=== PATIENT | male | born 1955 | race Caucasian/White ===

== ENCOUNTER 2018-02-02 18:42 | Emergency (ER) | payer MEDICARE ==
[~2018-02-02] VITALS: Ht 182.8 cm; Wt 72.6 kg
[2018-02-02 19:01] LABS: BASO % 0.3 % (0.0-1.0); EOS # 0.2 10*3/uL (0.0-0.4); EOS % 1.5 % (1.0-4.0); HEMATOCRIT 34.6 % (42.0-52.0); HEMOGLOBIN 11.5 g/dl (14.0-18.0); LYMPH # 1.9 10*3/uL (1.3-4.4); LYMPH % 15.8 % (27.0-41.0); MEAN CELL VOLUME 93.5 fl (80.0-94.0); MEAN CORPUSCULAR HGB 31.1 pg (27.0-31.0); MEAN CORPUSCULAR HGB CONC 33.2 g/dl (33.0-37.0); MEAN PLATELET VOLUME 11.1 fl (9.6-12.3); MONO # 0.9 10*3/uL (0.1-1.0); MONO % 7.5 % (3.0-9.0); NEUT # 8.9 10*3/uL (2.3-7.9); NEUT % 73.9 % (47.0-73.0); PLATELET COUNT AUTOMATED 69 10*3/uL (130-400); RED CELL DISTRI WIDTH 14.6 % (0-14.5); WHITE BLOOD COUNT 12.1 10*3/uL (4.8-10.8)
[2018-02-02 19:11] LABS: ACT PARTIAL THROMBO TIME 26.9 SECONDS (20.8-31.5); INTERNATIONAL NORM RATIO 1.1 (2.0-3.5)
[2018-02-02 19:16] LABS: ALBUMIN 2.9 gm/dl (3.1-4.5); ALKALINE PHOSPHATASE 160 U/L (45-117); BUN 7 mg/dl (7-24); CHLORIDE 103 mmol/L (98-107); CREATININE 0.77 mg/dL (0.70-1.30); SGOT/AST 76 IU/L (3-35); SGPT/ALT 56 U/L (12-78); SODIUM 136 mmol/L (136-145); TOTAL PROTEIN 7.1 gm/dL (6.4-8.2)
[2018-02-03] MEDS ORDERED: GLUCOPHAGE1000 MG PO (17:55)
[2018-02-03] MEDS ORDERED: GABAPENTIN100 M2 PO (17:57)
[2018-02-03] MEDS ORDERED: OMEPRAZOLE20 M2 PO (17:58)
== END 2018-02-02 21:00 | disposition home or self-care (01) ==
LOC: ED 18:42
PROVIDERS: Emergency Medicine
DX: S50.811A Abrasion of right forearm, initial encounter (principal); M25.551 Pain in right hip; F10.129 Alcohol abuse with intoxication, unspecified; F17.200 Nicotine dependence, unspecified, uncomplicated; W01.198A Fall on same level from slipping, tripping and stumbling with subsequent striking against other object, initial encounter; Y93.89 Activity, other specified; Y92.89 Other specified places as the place of occurrence of the external cause; Y99.9 Unspecified external cause status

== ENCOUNTER 2018-02-03 15:42 | Inpatient (IN) | payer OTHER ==
[~2018-02-03] VITALS: Ht 188 cm; Wt 85.7 kg
[2018-02-03 15:47] VITALS: BP 132/66
[2018-02-03 17:06] VITALS: BP 134/66
[2018-02-03 17:50] VITALS: BP 137/83
[2018-02-03] MEDS ORDERED: GLUCOPHAGE1000 MG PO (17:55)
[2018-02-03] MEDS ORDERED: GABAPENTIN100 M2 PO (17:57)
[2018-02-03] MEDS ORDERED: OMEPRAZOLE20 M2 PO (17:58)
[2018-02-04] VITALS (9 sets, daily range): BP systolic 98–121; BP diastolic 42–69
[2018-02-04 06:44] LABS: BASO % 0.4 % (0.0-1.0); EOS # 0.1 10*3/uL (0.0-0.4); EOS % 1.7 % (1.0-4.0); HEMATOCRIT 28.8 % (42.0-52.0); HEMOGLOBIN 9.7 g/dl (14.0-18.0); LYMPH # 1.8 10*3/uL (1.3-4.4); LYMPH % 26.3 % (27.0-41.0); MEAN CELL VOLUME 92.3 fl (80.0-94.0); MEAN CORPUSCULAR HGB 31.1 pg (27.0-31.0); MEAN CORPUSCULAR HGB CONC 33.7 g/dl (33.0-37.0); MONO # 0.8 10*3/uL (0.1-1.0); MONO % 10.8 % (3.0-9.0); NEUT # 4.2 10*3/uL (2.3-7.9); NEUT % 60.4 % (47.0-73.0); PLATELET COUNT AUTOMATED 51 10*3/uL (130-400); RED BLOOD COUNT 3.12 10*6/uL (4.50-5.90); RED CELL DISTRI WIDTH 14.5 % (0-14.5)
[2018-02-04 07:11] LABS: ALBUMIN 2.5 gm/dl (3.1-4.5); ALKALINE PHOSPHATASE 148 U/L (45-117); BUN 13 mg/dl (7-24); CHLORIDE 108 mmol/L (98-107); CHOLESTEROL 100 mg/dL (<200); CREATININE 0.69 mg/dL (0.70-1.30); FREE T4 1.37 ng/dl (0.76-1.46); HDL CHOLESTEROL 32 mg/dl (40-60); LDL CHOLESTEROL 53 mg/dL (9-159); PHOSPHOROUS 2.5 mg/dL (2.5-4.9); SGOT/AST 63 IU/L (3-35); SGPT/ALT 46 U/L (12-78); TOTAL PROTEIN 6.4 gm/dL (6.4-8.2); TRIGLYCERIDES 74 mg/dl (<150); VLDL CHOLESTEROL 15 mg/dL (6-40)
[2018-02-04 07:27] LABS: SODIUM 136 mmol/L (136-145)
[2018-02-04 07:43] LABS: POTASSIUM 4.4 mmol/L (3.5-5.1)
[2018-02-04 09:15] LABS: VITAMIN D, 25-HYDROXY 20.2 ng/mL (30-100)
[2018-02-04 22:10] LABS: BASO % 0.3 % (0.0-1.0); EOS # 0.1 10*3/uL (0.0-0.4); EOS % 1.7 % (1.0-4.0); HEMATOCRIT 28.6 % (42.0-52.0); HEMOGLOBIN 9.7 g/dl (14.0-18.0); LYMPH # 1.7 10*3/uL (1.3-4.4); LYMPH % 22.4 % (27.0-41.0); MEAN CELL VOLUME 93.2 fl (80.0-94.0); MEAN CORPUSCULAR HGB 31.6 pg (27.0-31.0); MEAN CORPUSCULAR HGB CONC 33.9 g/dl (33.0-37.0); MEAN PLATELET VOLUME 9.6 fl (9.6-12.3); MONO # 0.8 10*3/uL (0.1-1.0); MONO % 10.1 % (3.0-9.0); NEUT % 65.1 % (47.0-73.0); PLATELET COUNT AUTOMATED 62 10*3/uL (130-400); RED BLOOD COUNT 3.07 10*6/uL (4.50-5.90); RED CELL DISTRI WIDTH 14.6 % (0-14.5); WHITE BLOOD COUNT 7.6 10*3/uL (4.8-10.8)
[2018-02-05] VITALS (11 sets, daily range): BP systolic 105–139; BP diastolic 58–78
[2018-02-05 06:53] LABS: BASO % 0.4 % (0.0-1.0); EOS # 0.1 10*3/uL (0.0-0.4); EOS % 1.3 % (1.0-4.0); HEMATOCRIT 28.6 % (42.0-52.0); HEMOGLOBIN 9.7 g/dl (14.0-18.0); LYMPH # 1.6 10*3/uL (1.3-4.4); MEAN CELL VOLUME 91.4 fl (80.0-94.0); MEAN CORPUSCULAR HGB CONC 33.9 g/dl (33.0-37.0); MEAN PLATELET VOLUME 10.8 fl (9.6-12.3); MONO # 0.7 10*3/uL (0.1-1.0); MONO % 9.5 % (3.0-9.0); NEUT # 5.2 10*3/uL (2.3-7.9); NEUT % 67.4 % (47.0-73.0); PLATELET COUNT AUTOMATED 68 10*3/uL (130-400); RED BLOOD COUNT 3.13 10*6/uL (4.50-5.90); RED CELL DISTRI WIDTH 14.4 % (0-14.5); WHITE BLOOD COUNT 7.8 10*3/uL (4.8-10.8)
[2018-02-05 07:21] LABS: ALBUMIN 2.8 gm/dl (3.1-4.5); ALKALINE PHOSPHATASE 131 U/L (45-117); BUN 11 mg/dl (7-24); CHLORIDE 105 mmol/L (98-107); CREATININE 0.67 mg/dL (0.70-1.30); PHOSPHOROUS 2.9 mg/dL (2.5-4.9); POTASSIUM 3.9 mmol/L (3.5-5.1); SGOT/AST 64 IU/L (3-35); SGPT/ALT 42 U/L (12-78); SODIUM 138 mmol/L (136-145); TOTAL PROTEIN 6.8 gm/dL (6.4-8.2)
[2018-02-06] VITALS: BP 123/58
[2018-02-06 04:00] VITALS: BP 116/65
[2018-02-06 06:35] LABS: BASO % 0.1 % (0.0-1.0); HEMATOCRIT 25.9 % (42.0-52.0); HEMOGLOBIN 8.7 g/dl (14.0-18.0); LYMPH % 12.2 % (27.0-41.0); MEAN CELL VOLUME 93.2 fl (80.0-94.0); MEAN CORPUSCULAR HGB 31.3 pg (27.0-31.0); MEAN CORPUSCULAR HGB CONC 33.6 g/dl (33.0-37.0); MEAN PLATELET VOLUME 9.5 fl (9.6-12.3); MONO # 0.8 10*3/uL (0.1-1.0); MONO % 10.3 % (3.0-9.0); NEUT # 6.1 10*3/uL (2.3-7.9); NEUT % 76.9 % (47.0-73.0); PLATELET COUNT AUTOMATED 78 10*3/uL (130-400); RED BLOOD COUNT 2.78 10*6/uL (4.50-5.90); RED CELL DISTRI WIDTH 14.2 % (0-14.5); WHITE BLOOD COUNT 7.9 10*3/uL (4.8-10.8)
[2018-02-06 08:00] VITALS: BP 121/69
[2018-02-06 12:00] VITALS: BP 118/66
[2018-02-06 16:00] VITALS: BP 125/60
[2018-02-06 20:00] VITALS: BP 122/56
[2018-02-07] VITALS: BP 111/54
[2018-02-07 07:03] LABS: BASO % 0.4 % (0.0-1.0); EOS # 0.1 10*3/uL (0.0-0.4); HEMATOCRIT 26.2 % (42.0-52.0); HEMOGLOBIN 8.8 g/dl (14.0-18.0); LYMPH # 1.8 10*3/uL (1.3-4.4); LYMPH % 24.9 % (27.0-41.0); MEAN CELL VOLUME 92.3 fl (80.0-94.0); MEAN CORPUSCULAR HGB CONC 33.6 g/dl (33.0-37.0); MEAN PLATELET VOLUME 10.4 fl (9.6-12.3); MONO # 0.7 10*3/uL (0.1-1.0); MONO % 10.3 % (3.0-9.0); NEUT # 4.5 10*3/uL (2.3-7.9); NEUT % 63.1 % (47.0-73.0); PLATELET COUNT AUTOMATED 80 10*3/uL (130-400); RED BLOOD COUNT 2.84 10*6/uL (4.50-5.90); RED CELL DISTRI WIDTH 14.1 % (0-14.5); WHITE BLOOD COUNT 7.2 10*3/uL (4.8-10.8)
[2018-02-07 08:00] VITALS: BP 117/64
[2018-02-07 12:00] VITALS: BP 117/64
[2018-02-07 16:00] VITALS: BP 130/68
[2018-02-07 20:00] VITALS: BP 126/62
[2018-02-08] VITALS: BP 124/60
[2018-02-08 06:44] LABS: BASO % 0.2 % (0.0-1.0); EOS # 0.1 10*3/uL (0.0-0.4); EOS % 1.9 % (1.0-4.0); HEMATOCRIT 26.4 % (42.0-52.0); HEMOGLOBIN 8.7 g/dl (14.0-18.0); LYMPH # 1.4 10*3/uL (1.3-4.4); LYMPH % 30.3 % (27.0-41.0); MEAN CELL VOLUME 93.6 fl (80.0-94.0); MEAN CORPUSCULAR HGB 30.9 pg (27.0-31.0); MONO # 0.5 10*3/uL (0.1-1.0); MONO % 11.3 % (3.0-9.0); NEUT # 2.6 10*3/uL (2.3-7.9); NEUT % 56.1 % (47.0-73.0); PLATELET COUNT AUTOMATED 67 10*3/uL (130-400); RED BLOOD COUNT 2.82 10*6/uL (4.50-5.90); RED CELL DISTRI WIDTH 14.3 % (0-14.5); WHITE BLOOD COUNT 4.7 10*3/uL (4.8-10.8)
[2018-02-08 07:09] LABS: CREATININE 0.55 mg/dL (0.70-1.30)
[2018-02-08 08:00] VITALS: BP 128/61
[2018-02-08] MEDS ORDERED: ENOXAPARIN40 MG/0.2 SC (11:24)
[2018-02-08] MEDS ORDERED: VITAMIN D-32000 UNIT PO (11:24)
[2018-02-08] MEDS ORDERED: B12,B-12,B 12500 MC1 PO (11:24)
[2018-02-08] MEDS ORDERED: NATURE'S BLEND F1 MG PO (11:24)
[2018-02-08] MEDS ORDERED: PERCOCET 5-3251 EACH PO (11:26)
[2018-02-08 12:00] VITALS: BP 135/78
== END 2018-02-08 14:33 | disposition home health service (06) | DRG 481 ==
LOC: ED 15:42 → EDHOLD 17:15 → 5E 17:15
PROVIDERS: Internal Medicine; Orthopaedic Surgery; Student in an Organized Health Care Education/Training Program
PROC: 30233R1 Transfusion of Nonautologous Platelets into Peripheral Vein, Percutaneous Approach (ICD-10-PCS; 2018-02-04)
PROC: 0QS604Z Reposition Right Upper Femur with Internal Fixation Device, Open Approach (ICD-10-PCS; principal; 2018-02-05)
DX: S72.144A Nondisplaced intertrochanteric fracture of right femur, initial encounter for closed fracture (principal); E44.0 Moderate protein-calorie malnutrition; D69.6 Thrombocytopenia, unspecified; Z68.45 Body mass index [BMI] 70 or greater, adult; I65.29 Occlusion and stenosis of unspecified carotid artery; E11.65 Type 2 diabetes mellitus with hyperglycemia; C44.212 Basal cell carcinoma of skin of right ear and external auricular canal; D72.829 Elevated white blood cell count, unspecified; D64.9 Anemia, unspecified; D72.810 Lymphocytopenia; D72.9 Disorder of white blood cells, unspecified; R74.0 Nonspecific elevation of levels of transaminase and lactic acid dehydrogenase [LDH]; B19.20 Unspecified viral hepatitis C without hepatic coma; F17.200 Nicotine dependence, unspecified, uncomplicated; E78.1 Pure hyperglyceridemia; E87.6 Hypokalemia; I70.209 Unspecified atherosclerosis of native arteries of extremities, unspecified extremity; W01.0XXA Fall on same level from slipping, tripping and stumbling without subsequent striking against object, initial encounter; Y93.89 Activity, other specified; Y92.098 Other place in other non-institutional residence as the place of occurrence of the external cause; Y99.8 Other external cause status; Z90.49 Acquired absence of other specified parts of digestive tract; Z83.3 Family history of diabetes mellitus; Z82.49 Family history of ischemic heart disease and other diseases of the circulatory system; Z79.899 Other long term (current) drug therapy; Z71.6 Tobacco abuse counseling

== ENCOUNTER → 2018-02-18 | Outpatient (CLI) | payer OTHER ==
[~2018-02-18] MED LIST: B12,B-12,B 12500 MC1 PO; ENOXAPARIN40 MG/0.2 SC; GABAPENTIN100 M2 PO; GLUCOPHAGE1000 MG PO; NATURE'S BLEND F1 MG PO; OMEPRAZOLE20 M2 PO; PERCOCET 5-3251 EACH PO; VITAMIN D-32000 UNIT PO
== END | disposition home or self-care (01) ==
LOC: ORTHO 02:38
DX: M16.11 Unilateral primary osteoarthritis, right hip (principal); Z47.1 Aftercare following joint replacement surgery

== ENCOUNTER → 2018-03-22 | Outpatient (CLI) | payer OTHER | END | disposition home or self-care (01) | LOC: ORTHO 02:48 | DX: Z47.89 Encounter for other orthopedic aftercare (principal); M16.11 Unilateral primary osteoarthritis, right hip; Z96.641 Presence of right artificial hip joint ==

== ENCOUNTER → 2018-09-26 | Day surgery (SDC) | payer MEDICARE ==
[~2018-09-26] MED LIST changes: +ALDACTONE25 MG PO; +FUROSEMIDE10 MG/1 M1 PO; +LEVOFLOXACIN500 MG PO; +METFORMIN HYD1000 MG PO; +METFORMIN HYDR500 MG PO; +PROPRANOLOL HCL10 MG PO; +VITAMIN E100 UNI2 PO
[2018-09-26 12:15] VITALS: BP 127/49
== END | disposition home or self-care (01) ==
DX: R18.8 Other ascites (principal); K74.69 Other cirrhosis of liver; K76.6 Portal hypertension

== ENCOUNTER → 2018-10-03 | Outpatient (CLI) | payer MEDICARE | END | disposition home or self-care (01) | DX: S72.144D Nondisplaced intertrochanteric fracture of right femur, subsequent encounter for closed fracture with routine healing (principal); M16.11 Unilateral primary osteoarthritis, right hip; X58.XXXD Exposure to other specified factors, subsequent encounter ==

== ENCOUNTER → 2018-10-04 | Day surgery (SDC) | payer MEDICARE | END | disposition home or self-care (01) | DX: R18.8 Other ascites (principal); K74.60 Unspecified cirrhosis of liver ==

== ENCOUNTER → 2018-10-18 | Day surgery (SDC) | payer MEDICARE | END | disposition home or self-care (01) | LOC: RAD 11:00 | DX: R18.8 Other ascites (principal) ==

== ENCOUNTER → 2018-10-25 | Day surgery (SDC) | payer MEDICARE ==
[~2018-10-25] MED LIST changes: -LEVOFLOXACIN500 MG PO; -PROPRANOLOL HCL10 MG PO
== END | disposition home or self-care (01) ==
DX: K70.31 Alcoholic cirrhosis of liver with ascites (principal); Z53.8 Procedure and treatment not carried out for other reasons

== ENCOUNTER → 2018-11-01 | Day surgery (SDC) | payer MEDICARE | END | disposition home or self-care (01) | DX: R18.8 Other ascites (principal) ==

== ENCOUNTER → 2018-11-08 | Day surgery (SDC) | payer MEDICARE ==
[~2018-11-08] MED LIST changes: +LEVOFLOXACIN500 MG PO; +PROPRANOLOL HCL10 MG PO
== END | disposition home or self-care (01) ==
DX: R18.8 Other ascites (principal)

== ENCOUNTER → 2018-11-15 | Day surgery (SDC) | payer MEDICARE ==
[~2018-11-15] MED LIST changes: -LEVOFLOXACIN500 MG PO; -PROPRANOLOL HCL10 MG PO
== END | disposition home or self-care (01) ==
DX: R18.8 Other ascites (principal)

== ENCOUNTER → 2018-11-21 | Day surgery (SDC) | payer MEDICARE ==
[~2018-11-21] MED LIST changes: +LEVOFLOXACIN500 MG PO; +PROPRANOLOL HCL10 MG PO
== END | disposition home or self-care (01) ==
DX: K70.31 Alcoholic cirrhosis of liver with ascites (principal); K21.9 Gastro-esophageal reflux disease without esophagitis; E11.40 Type 2 diabetes mellitus with diabetic neuropathy, unspecified; F17.210 Nicotine dependence, cigarettes, uncomplicated; Z79.899 Other long term (current) drug therapy; Z90.49 Acquired absence of other specified parts of digestive tract; Z72.89 Other problems related to lifestyle; Z98.890 Other specified postprocedural states; Z82.49 Family history of ischemic heart disease and other diseases of the circulatory system; Z83.3 Family history of diabetes mellitus

== ENCOUNTER → 2018-12-02 | Day surgery (SDC) | payer MEDICARE ==
[2018-12-02 10:47] LABS: ACT PARTIAL THROMBO TIME 25.5 SECONDS (20.8-31.5); INTERNATIONAL NORM RATIO 1.1 (2.0-3.5)
== END | disposition home or self-care (01) ==
PROVIDERS: Internal Medicine
DX: K70.31 Alcoholic cirrhosis of liver with ascites (principal); E11.9 Type 2 diabetes mellitus without complications; B19.20 Unspecified viral hepatitis C without hepatic coma; K21.9 Gastro-esophageal reflux disease without esophagitis; G62.9 Polyneuropathy, unspecified; G47.00 Insomnia, unspecified; Z98.890 Other specified postprocedural states; Z79.899 Other long term (current) drug therapy; Z83.3 Family history of diabetes mellitus; Z82.49 Family history of ischemic heart disease and other diseases of the circulatory system

== ENCOUNTER → 2018-12-10 | Day surgery (SDC) | payer MEDICARE | END | disposition home or self-care (01) | DX: R18.8 Other ascites (principal); K74.60 Unspecified cirrhosis of liver ==

== ENCOUNTER → 2018-12-18 | Day surgery (SDC) | payer MEDICARE | END | disposition home or self-care (01) | DX: R18.8 Other ascites (principal); K74.60 Unspecified cirrhosis of liver ==

== ENCOUNTER → 2018-12-26 | Day surgery (SDC) | payer MEDICARE | END | disposition home or self-care (01) | DX: R18.8 Other ascites (principal); K70.30 Alcoholic cirrhosis of liver without ascites; E11.9 Type 2 diabetes mellitus without complications; B19.20 Unspecified viral hepatitis C without hepatic coma; G47.00 Insomnia, unspecified; G62.9 Polyneuropathy, unspecified; K21.9 Gastro-esophageal reflux disease without esophagitis; Z98.890 Other specified postprocedural states; Z79.899 Other long term (current) drug therapy; Z90.49 Acquired absence of other specified parts of digestive tract ==

== ENCOUNTER → 2019-01-23 | Day surgery (SDC) | payer MEDICARE | END | disposition home or self-care (01) | DX: R18.8 Other ascites (principal); K74.60 Unspecified cirrhosis of liver ==

== ENCOUNTER 2019-02-08 19:15 | Inpatient (IN) | payer MEDICARE ==
[~2019-02-08] VITALS: Ht 175.2 cm; Wt 64.6 kg
--- NOTE | ~2019-02-08 | EKG ---
[place], [place] ELECTROCARDIOGRAM REPORT NAME: ELLIOT CUTLER UNIT #: [id number] ROOM: [facility] DOCTOR: EPIPHANY DRAFT REPORT BIRTHDATE: [birth year] [facility] Test Date: 2019-02-09 Test Time: 01:16:58 Pat Name: ELLIOT CUTLER Department: Room: [facility] Gender: M [employer] Set Up Operator: Candace Tran : 1955 Requested By: WARNER GHOSH Order Number: [id number] Reading MD: Lesli Hawthorne MD Measurements Intervals [place] Rate: 97 P: 12 AL: 160 QRS: 27 QRSD: 94 T: 3 QT: 395 QTc: 502 Interpretive Statements Sinus rhythm Ventricular premature complex Low voltage, extremity leads Prolonged QT interval Electronically Signed On 02-09-2019 13:14:46 PDT by Lesli Hawthorne MD CM:EKGRPT:ELECTROCARDIOGRAM REPORT [id number] 1314 WARNER GHOSH MD EPIPHANY DRAFT REPORT WARNER GHOSH MD
--- NOTE | ~2019-02-08 | CON ---
[place], [place] REPORT OF CONSULTATION NAME[id number] UNIT #: [id number] ROOM: [facility]- DOCTOR: AMADOR MACK MD BIRTHDATE: [birth year] DOS: 02/09/2019 REASON FOR CONSULTATION: SBP. CHIEF COMPLAINT: Shortness of breath. HISTORY OF PRESENT ILLNESS: This is a 63-year-old male with past medical history of hepatitis C, chronic untreated with cirrhosis of liver and recurrent ascites, who undergoes frequent drainage and last drainage was on 01/30/2019, IR-guided, draining 7100 mL of clear fluid without any albumin supplementation. He was brought in because of the concern of daughter as the patient has shortness of breath. He has not been eating and drinking well. His pulse ox was noted to be in his 60s, currently he is on 12 L of oxygen, not intubated. He is in ICU. Interestingly, he was a DNR comfort care; however, his daughter told everything needs to be done and the patient refused it now. Rest of the history is limited. Yesterday, he underwent a paracentesis in the ER and there is only 33 wbc's. He was not on any antibiotics prior to this. His Gram stain shows few PMNs, no organism. He has been started on vancomycin and Zosyn. PAST MEDICAL HISTORY: Significant for cirrhosis of liver, hepatitis C untreated, basal cell carcinoma of the skin of ear, carotid artery stenosis, COPD, type 2 diabetes controlled, intertrochanteric fracture of right hip. PAST SURGICAL HISTORY: Cholecystectomy, toe surgery, and right hip ORIF recently. PAST SOCIAL HISTORY: Smoker smoked 1 pack per day. Currently no alcohol intake. FAMILY HISTORY: Significant for diabetes and father currently . Mother had a history of CHF, coronary artery disease. ALLERGIES: No known drug allergies. MEDICATIONS: Prior to the hospitalization reviewed. REVIEW OF SYSTEMS: A 12-point review of systems has been done. Pertinent negative and positives included in the HPI, rest are noncontributory. PHYSICAL EXAMINATION: GENERAL: The patient is alert and awake, but not completely oriented, in mild distress, and he is cachectic with bilateral temporal wasting of muscles. HEART: Atraumatic, normocephalic. PERRLA, EOMI. RESPIRATORY: Air entry is bilaterally equal. There are bilateral lower lung crackles. ABDOMEN: Distended, soft, nontender. EXTREMITIES: No pedal edema. SKIN: There are 2 skin lesions at the back, which were previous abscess drained. Currently not infected. No redness, tenderness, healing well. [place], [place] REPORT OF CONSULTATION NAME: ELLIOT CUTLER UNIT #: [id number] ROOM: [facility] DOCTOR: AMADOR MACK MD BIRTHDATE: [birth year] LABORATORY DATA AND IMAGING: Noted. ASSESSMENT AND PLAN: 1. Leukocytosis, likely from dehydration. 2. Spontaneous bacterial peritonitis ruled out. 3. Cirrhosis of liver with ascites. 4. Chronic hepatitis C, untreated. 5. Acute respiratory failure/chronic obstructive pulmonary disease. PLAN: 1. At this time, discontinue vancomycin. Keep on Zosyn. 2. Paracentesis fluid not conclusive for SBP. 3. Would recommend for a CT scan of abdomen and pelvis with contrast, at the same time, his overall prognosis is poor. Code status needs to be addressed. The patient himself wishes for comfort care. Thank you for your consult. Please call for any questions. We will follow the patient closely. Amador Mack MD CM:CONSTR:REPORT OF CONSULTATION 1622 02/09/19 [id number] interface
--- NOTE | ~2019-02-08 | EKG ---
[place], [place] ELECTROCARDIOGRAM REPORT NAME: ELLIOT CUTLER UNIT #: [id number] ROOM: [facility] DOCTOR: ABELINO DRAFT REPORT BIRTHDATE: [birth year] [facility] Test Date: 2019-02-08 Test Time: 19:24:13 Pat Name: ELLIOT CUTLER Department: Room: [facility] Gender: M Ham Passer: Sarwat Cantu : 1955 Requested By: WARNER GHOSH Order Number: [id number] Reading MD: Lesli Hawthorne MD Measurements Intervals [place] Rate: 154 P: 20 DE: 135 QRS: 50 QRSD: 82 T: 10 QT: 258 QTc: 413 Interpretive Statements Supraventricular tachycardia Multiple ventricular premature complexes Low voltage, extremity leads Baseline wander in lead(s) V2 Electronically Signed On 02-09-2019 13:13:27 PDT by Lesli Hawthorne MD CM:EKGRPT:ELECTROCARDIOGRAM REPORT 23 1313 WARNER GHOSH MD EPIPHANY DRAFT REPORT WARNER GHOSH MD
--- NOTE | ~2019-02-08 | EKG ---
[place], [place] ELECTROCARDIOGRAM REPORT NAME: ELLIOT CUTLER UNIT #: [id number] ROOM: [facility] DOCTOR: ABELINO DRAFT REPORT BIRTHDATE: [birth year] [facility] Test Date: 2019-02-08 Test Time: 22:39:42 Pat Name: ELLIOT CUTLER Department: Room: [facility] Gender: M Nursery Technician: Candace Tran : 1955 Requested By: WARNER GHOSH Order Number: [id number] Reading MD: Lesli Hawthorne MD Measurements Intervals [place] Rate: 106 P: 17 LA: 150 QRS: 20 QRSD: 89 T: 4 QT: 357 QTc: 475 Interpretive Statements Sinus tachycardia Low voltage, extremity leads Baseline wander in lead(s) V1 Electronically Signed On 02-09-2019 13:14:23 PDT by Lesli Hawthorne MD CM:EKGRPT:ELECTROCARDIOGRAM REPORT 1314 WARNER GHOSH MD EPIPHANY DRAFT REPORT WARNER GHOSH MD
[2019-02-08 19:24] VITALS: BP 149/100
[2019-02-08 19:35] VITALS: BP 137/91
[2019-02-08 19:37] LABS: HEMOGLOBIN 13.1 g/dl (14.0-18.0); MEAN CORPUSCULAR HGB 34.1 pg (27.0-31.0); MEAN CORPUSCULAR HGB CONC 34.5 g/dl (33.0-37.0); MEAN PLATELET VOLUME 9.6 fl (9.6-12.3); RED BLOOD COUNT 3.84 10*6/uL (4.50-5.90); RED CELL DISTRI WIDTH 18.5 % (0-14.5)
[2019-02-08 19:42] LABS: PLATELET COUNT AUTOMATED 143 10*3/uL (130-400); WHITE BLOOD COUNT 48.9 10*3/uL (4.8-10.8)
--- NOTE | 2019-02-08 19:46 | NUR ---
ATTEMPTED TO NOTIF NEXT OF KIN ELIZABETH X2 LEFT MESSAGES OLD DNR PAPERWORK, BUT NOT SIGNED BY A PHYSICIAN AND PATIENT VERBALIZED WANTING "EVERYTHING DONE NEEDED" IN FRONT OF THIS RN, DEEPA RN, AND RESPIRATORY ALANA
[2019-02-08 19:53] LABS: ALBUMIN 2.5 gm/dl (3.1-4.5); CREATININE 1.65 mg/dL (0.70-1.30); POTASSIUM 4.2 mmol/L (3.5-5.1); TOTAL PROTEIN 7.4 gm/dL (6.4-8.2)
[2019-02-08 19:56] LABS: TOTAL CELLS COUNTED 100 #CELLS
[2019-02-08 19:57] LABS: PLATELET SUFFICIENCY NORMAL (NORMAL); POLYCHROMASIA SLIGHT; TROPONIN I 0.046 ng/ml (<0.045)
--- NOTE | 2019-02-08 19:57 | NUR ---
CRITICAL LAB RESULT TROP 0.046. DR MACIEL NOTIFIED AND NURSE MAYRA NOTIFIED
[2019-02-08 19:58] VITALS: BP 111/44
[2019-02-08 19:58] LABS: BURR CELLS FEW; TOXIC GRANULATION SLIGHT
--- NOTE | 2019-02-08 19:58 | NUR ---
ATTEMPTED TO CONTACT NEXT OF KIN AGAIN, LEFT MESSAGE
[2019-02-08 20:03] LABS: ACT PARTIAL THROMBO TIME 26.3 SECONDS (20.8-31.5); INTERNATIONAL NORM RATIO 1.2 (2.0-3.5)
--- NOTE | 2019-02-08 20:29 | NUR ---
SPOKE WITH ELIZABETH, DAUGHTER, RETURNED CALL, VERIFIED THAT PATIENT IS A FULL CODE, INFORMED NURSE PATIENT HAS HAD COUGH AND FLU LIKE SYMPTOMS FOR A WEEK, WORSE LAST TWO DAYS, CELLULAR NUMBER [phone] ALSO HAD ENDEOSCOPY 3WKS
[2019-02-08 21:11] LABS: BODY FLUID WBC 33 /uL
--- NOTE | 2019-02-08 21:18 | NUR ---
PER PATIENT REQUEST, PT REMOVED FROM BIPAP, PLACED BACK ON 100% NON REBREATHER 100% SAT
[2019-02-08 21:21] VITALS: BP 103/71
--- NOTE | 2019-02-08 21:32 | NUR ---
PT HAS RED COCCYX AREA BUT IS BLANCHABLE
--- NOTE | 2019-02-08 21:33 | NUR ---
[facility] "IS OFF THE DEPARTMENT" AND "UNABLE TO BRING PATIENT AT THIS TIME"
[2019-02-08 21:50] LABS: BF LYMPHOCYTES 16 %; BF MACROPHAGES 69 %; BF NEUTROPHILS 15 %
[2019-02-08 22:15] VITALS: BP 93/63; BP 94/64
--- NOTE | 2019-02-08 22:45 | NUR ---
DR. ANDREWS AWARE THAT PATIENT HAS ARRIVED TO THE FLOOR AND MED REC IS UP-TO-DATE.
--- NOTE | 2019-02-08 22:55 | NUR ---
A 63, admitted to ICCU, under the services of AUSTEN Menjivar MD with a diagnosis of BACTERIAL PERITONITIS, CIRRHOSIS. Chief complaint is SHORTNESS OF BREATHE. Patient arrived via bed from ER. Monitor applied. Initial assessment completed. Vital signs taken and recorded. AUSTEN MENJIVAR MD notified of admission to the unit. Orders received. See assessment for past medical history, medications and allergies. Patient and/or family oriented to unit. [facility]U visitation policy reviewed. Clothing/patient valuable form completed. CAS HERNANDEZ
--- NOTE | 2019-02-08 22:57 | NUR ---
ON INITIAL ASSESSMENT PATIENT IS DEEMED A&OX3. PATIENT VERBALIZES THAT HE DOES NOT WANT ANY RESUSCITATIVE MEASURES TO BE PERFORMED. PATIENT STATES "TO LET HIM GO". YAMEL RN AND JOSE F RN PRESENT IN THE ROOM AT THIS TIME. DAUGHTER ELIZABETH CALLED AND MADE AWARE OF PATIENT WISHES AND IS UNDERSTANDABLE DURING CONVERSATION. DR. ANDREWS IN TO SIGN DNR-CC FORM.
--- NOTE | 2019-02-08 23:20 | NUR ---
DR ANDREWS IN TO SEE PATIENT AND DISCUSS PLAN OF CARE.
--- NOTE | 2019-02-08 23:50 | NUR ---
DR ODONNELL NOTIFIED OF ADMISSION, PATIENT CONDITION, HISTORY, AND LABS REVIEWED. ORDERS RECEIVED. DR. ODONNELL WILL TALK TO DR. BASURTO ABOUT NEPHROLOGY CONSULT.
[2019-02-09] VITALS: BP 98/60
--- NOTE | 2019-02-09 00:20 | NUR ---
CARDIOLOGY ANSWERING SERVICES CALLED TO LEAVE MESSAGE OF ROUTINE CONSULT. ANAY FROM ANSWERING SERVICE TRANSFERRED ME DIRECTLY TO DR. ARNDT. SPOKE WITH DR. ARNDT ABOUT PATIENT CONDITION AND PRESENTING SYMPTOMS. PATIENT IS STABLE AT THIS TIME AND WILL BE SEEN TOMORROW BY DR. ARNDT.
--- NOTE | 2019-02-09 00:46 | NUR ---
MESSAGE LEFT WITH INFECTIOUS DISEASE REGARDING ROUTINE CONSULT. CALL BACK NUMBER GIVEN.
--- NOTE | 2019-02-09 03:30 | NUR ---
NORCO GIVEN PER PT REQUEST FOR HEADACHE AND JOINT PAIN. PATIENT RATING PAIN 6/10 AND DESCRIBED A DULL ACHE. WILL CONTINUE TO MONITOR. CALL LIGHT WITHIN REACH.
[2019-02-09 04:00] VITALS: BP 97/61
--- NOTE | 2019-02-09 04:30 | NUR ---
MEDICATION EFFECTIVE. PATIENT RESTING COMFORTABLY IN BED WITH HOB ELEVATED AND HEELS ELEVATED AT THIS TIME.
[2019-02-09 05:30] LABS: ALBUMIN 1.9 gm/dl (3.1-4.5); BUN 28 mg/dl (7-24); CHLORIDE 109 mmol/L (98-107); CHOLESTEROL 85 mg/dL (<200); CREATININE 1.29 mg/dL (0.70-1.30); POTASSIUM 4.2 mmol/L (3.5-5.1); SGOT/AST 58 IU/L (3-35); SGPT/ALT 25 U/L (12-78); SODIUM 139 mmol/L (136-145); TOTAL PROTEIN 5.6 gm/dL (6.4-8.2); TRIGLYCERIDES 81 mg/dl (<150); VLDL CHOLESTEROL 16 mg/dL (6-40)
[2019-02-09 05:36] LABS: ALKALINE PHOSPHATASE 119 U/L (45-117); FREE T4 1.16 ng/dl (0.76-1.46); HDL CHOLESTEROL 29 mg/dl (40-60); LDL CHOLESTEROL 40 mg/dL (9-159); THYROID STIM HORMONE (HS) 0.586 uIU/ml (0.358-4.75)
[2019-02-09 06:05] LABS: ACT PARTIAL THROMBO TIME 27.5 SECONDS (20.8-31.5); INTERNATIONAL NORM RATIO 1.2 (2.0-3.5)
[2019-02-09 06:10] LABS: BASO % 0.1 % (0.0-1.0); LYMPH # 1.3 10*3/uL (1.3-4.4); LYMPH % 6.3 % (27.0-41.0); MEAN CELL VOLUME 98.3 fl (80.0-94.0); MEAN CORPUSCULAR HGB 33.4 pg (27.0-31.0); MEAN PLATELET VOLUME 10.2 fl (9.6-12.3); MONO # 0.9 10*3/uL (0.1-1.0); MONO % 4.4 % (3.0-9.0); NEUT # 18.5 10*3/uL (2.3-7.9); NEUT % 87.9 % (47.0-73.0); RED BLOOD COUNT 2.96 10*6/uL (4.50-5.90)
[2019-02-09 06:11] LABS: HEMOGLOBIN 9.9 g/dl (14.0-18.0)
[2019-02-09 06:12] LABS: HEMATOCRIT 29.1 % (42.0-52.0); PLATELET COUNT AUTOMATED 50 10*3/uL (130-400)
[2019-02-09 06:42] LABS: VITAMIN D, 25-HYDROXY 16.5 ng/mL (30-100)
--- NOTE | 2019-02-09 06:43 | NUR ---
NOTIFIED DR. ANDREWS ABOUT NEEDING WOUND CARE ORDERS. STATES DR. ODONNELL WILL PROVIDE WOUND CARE ORDERS WHEN HE COMES IN TODAY.
[2019-02-09 07:43] LABS: BASO % 0.2 % (0.0-1.0); HEMATOCRIT 29.3 % (42.0-52.0); LYMPH # 1.8 10*3/uL (1.3-4.4); MEAN CORPUSCULAR HGB 33.4 pg (27.0-31.0); MEAN CORPUSCULAR HGB CONC 34.1 g/dl (33.0-37.0); MEAN PLATELET VOLUME 9.6 fl (9.6-12.3); MONO # 0.9 10*3/uL (0.1-1.0); NEUT # 18.8 10*3/uL (2.3-7.9); NEUT % 86.4 % (47.0-73.0); PLATELET COUNT AUTOMATED 55 10*3/uL (130-400); RED BLOOD COUNT 2.99 10*6/uL (4.50-5.90); WHITE BLOOD COUNT 21.8 10*3/uL (4.8-10.8)
[2019-02-09 08:00] VITALS: BP 92/62
[2019-02-09 12:00] VITALS: BP 90/60
--- NOTE | 2019-02-09 12:00 | NUR ---
DR ODONNELL INTO ASSESS PT AND DISCUSS CODE STATUS WITH DAUGHTER AND PT. IT HAS BEEN DECIDED THAT [facility] WILL BE CONSULTED AND PT WILL REMAIN A DNRCC.
--- NOTE | 2019-02-09 14:50 | NUR ---
MOANING IN PAIN. COMPLAINS OF PAIN IN ABDOMEN. RATES PAIN A 10 ON A PAIN SCALE OF 1-10. MEDICATED WITH NORCO ORDERED
--- NOTE | 2019-02-09 14:57 | NUR ---
DR. ODONNELL NOTIFIED THAT PATIENT IS IN SEVERE PAIN. ORDERS RECEIVED FOR DILAUDID 0.5MG IV
[2019-02-09 16:00] VITALS: BP 127/77
--- NOTE | 2019-02-09 16:00 | NUR ---
NO WOUND CARE ORDERS NEEDED PER DR MACK.
--- NOTE | 2019-02-09 16:35 | NUR ---
BS 34. 1 AMP OF D50 ADMINISTERED ALONG WITH AN OJ AND SMALL AMOUNT OF PUDDING.
--- NOTE | 2019-02-09 16:37 | NUR ---
1530 DILAUDID 0.5MG IV ADMINISTERED FOR OVERALL BODY PAIN RATED A 10. PT IS NOW SLEEPING.
--- NOTE | 2019-02-09 16:59 | NUR ---
BS IS NOW 101.
[2019-02-09 20:00] VITALS: BP 108/62
[2019-02-10] VITALS: BP 101/53
[2019-02-10 04:00] VITALS: BP 102/35
[2019-02-10 05:15] LABS: ALBUMIN 1.8 gm/dl (3.1-4.5); CREATININE 1.5 mg/dL (0.70-1.30); POTASSIUM 4.5 mmol/L (3.5-5.1); TOTAL PROTEIN 5.4 gm/dL (6.4-8.2)
--- NOTE | 2019-02-10 05:30 | NUR ---
AT 0510 PT HEART RATE INTO 20-30'S, AGONAL BREATHING AND UNRESPONSIVE. PT STOPPED BREATHING FOR APPROX 2 MINUTES THEN PT HR BACK UP INTO THE 90'S AND NSR. RESP 20'S, POX 92% AND RESPONDING TO VERBAL STIMULI.
[2019-02-10 06:12] LABS: BASO # 0.1 10*3/uL (0.0-0.1); BASO % 0.2 % (0.0-1.0); HEMATOCRIT 30.7 % (42.0-52.0); LYMPH # 1.6 10*3/uL (1.3-4.4); MEAN CORPUSCULAR HGB CONC 32.6 g/dl (33.0-37.0); MEAN PLATELET VOLUME 10.5 fl (9.6-12.3); MONO # 0.9 10*3/uL (0.1-1.0); MONO % 4.2 % (3.0-9.0); NEUT # 19.4 10*3/uL (2.3-7.9); NEUT % 87.3 % (47.0-73.0); PLATELET COUNT AUTOMATED 53 10*3/uL (130-400); RED BLOOD COUNT 3.03 10*6/uL (4.50-5.90); WHITE BLOOD COUNT 22.2 10*3/uL (4.8-10.8)
[2019-02-10 06:49] LABS: MEAN CELL VOLUME 101.3 fl (80.0-94.0)
--- NOTE | 2019-02-10 07:48 | NUR ---
Received order for [facility]. Contacted hospice and spoke with Luz, faxed referral.
[2019-02-10 08:00] VITALS: BP 97/59
--- NOTE | 2019-02-10 08:09 | NUR ---
PHYSICAL THERAPY Nursing screen received. Noted hospice consult and not medically appropriate for physical therapy at this time. Thank you. Yaneth Yu,PT
--- NOTE | 2019-02-10 08:13 | NUR ---
PT IS IN A VERY GRAVE STATE. WORKERS' COMPENSATION CLAIMS SUPERVISOR HAS FAXED REQUEST OVER TO [facility] PER PT AND DAUGHTER/ERIK ROSSI ([phone]).
--- NOTE | 2019-02-10 08:59 | NUR ---
Spoke to daughter, Nadira, who would like a referral sent to [facility] for hospice consult as well as [facility]. corporate planner notified.
--- NOTE | 2019-02-10 09:05 | NUR ---
DAUGHTER/POA CALLED IN AND REQUESTED TO HAVE FATHER KEPT COMFORTABLE POSSIBLE UNTIL HOSPICE ARRANGEMENTS HAVE BEEN MADE. DR ODONNELL MADE AWARE AND ORDERED MORPHINE 2MG IV Q2H/PRN.
--- NOTE | 2019-02-10 09:11 | NUR ---
Daughter is now requesting a referral to [facility]. Contacted agency and faxed referral. They are going to call patients daughter, then call back when a time is set to come in and see patient.
--- NOTE | 2019-02-10 09:20 | NUR ---
MEDICATED WITH MORPHINE 2MG IV FOR COMFORT AND ZOFRAN 4MG IV FOR NAUSEA. DR ODONNELL INTO ASSESS PT AND INCREASED MORPHINE IF NO COMFORT REACHED.
--- NOTE | 2019-02-10 10:10 | NUR ---
ELLIOT CUTLER [id number] Please refer to the physician's history and physical for past medical history, comorbid conditions, and allergies. Diagnosis: SPONTANEOUS BACTERIAL PERITONITIS CHIRRHOSIS Ace Score: 13,MODERATE RISK WOUND DESCRIPTIONS: Wound Number: 1 Right buttocks intact scar noted. No drainage at time of assessment. No open areas noted at time of assessment. Wound Number: 2 Location of the wound: right lower back Type of wound: surgical Thickness: Full Size: 1.5cm x 2.0cm x 0.1cm Tunneling: none Undermining: none Sinus Tract: none Presence of Exudate: none Amount: None Color: Brown, red Odor: None Periwound Skin Appearance: Normal Wound edges: closed Pain (associated with wound): none at time of assessment How does patient state this happened? pt's nurse stated he had a cyst removed but unsure of date Surface the patient is resting on: XPRT SKIN PREVENTION RECOMMENDATION: 1. Pressure redistribution support surface as appropriate 2. Elevate heels 3. Remove boots/TEDS every shift and reapply 4. Head of bed 30 degrees as tolerated 5. Assess nutrition and hydration 6. Manage moisture 7. Avoid the use of containment devices while in bed 8. Use absorptive products on surfaces limit layers of linens on bed 9. Turn and reposition every 1-2 hours in bed and every 1 hour in chair as tolerated 10. Weight shifts every 15 minutes while up in chair 11. Offloading with pillows or device to keep heels elevated off bed 12. Monitor skin at least every shift 13. Inspect under medical devices twice a day WOUND TREATMENT RECOMMENDATIONS: Cleanse right buttocks with soap and water and apply hydraguard every shift and prn for soiling. Full thickness guidelines: Cleanse right back with nss and apply sureprep around the wound therahoney to wound bed and cover with optifoam gentle. Wheelchair cushion when oob. Heel raiser pro boots while in bed.
--- NOTE | 2019-02-10 10:15 | NUR ---
MEDICATED WITH MORPHINE 2MG IV FOR COMFORT PER FAMILYS REQUEST. PERSONAL CARE HOME ADMINISTRATOR ALSO NOTIFIED AND AT BEDSIDE.
--- NOTE | 2019-02-10 10:45 | NUR ---
[facility]
--- NOTE | 2019-02-10 11:01 | NUR ---
PT HAS WITH FAMILY AT BEDSIDE. ONE CALL HAS RELEASED THE BODY. DR ODONNELL AND COLBY FINN RN BACK SEWER MADE AWARE OF . AWAITING ARRANGEMENTS FROM FAMILY.
--- NOTE | 2019-02-10 13:32 | NUR ---
PT DC TO [facility] VIA CART WITH EYE GLASSES. DAUGHTER ELIZABETH IS COMING TO [employer] OTHER BELONGINGS.
== END 2019-02-10 10:40 | disposition expired | DRG 871 ==
LOC: ED 19:15 → EDHOLD 20:17 → ICCU 20:38
PROVIDERS: Emergency Medicine Emergency Medical Services; Internal Medicine; ADMIT Internal Medicine
PROC: 5A09357 Assistance with Respiratory Ventilation, Less than 24 Consecutive Hours, Continuous Positive Airway Pressure (ICD-10-PCS; principal; 2019-02-08)
PROC: 0W9G3ZZ Drainage of Peritoneal Cavity, Percutaneous Approach (ICD-10-PCS; principal; 2019-02-08)
DX: A41.9 Sepsis, unspecified organism (principal); K65.2 Spontaneous bacterial peritonitis; J96.01 Acute respiratory failure with hypoxia; E43 Unspecified severe protein-calorie malnutrition; R18.8 Other ascites; R64 Cachexia; Z66 Do not resuscitate; Z51.5 Encounter for palliative care; R65.20 Severe sepsis without septic shock; B18.2 Chronic viral hepatitis C; E11.9 Type 2 diabetes mellitus without complications; K74.60 Unspecified cirrhosis of liver; I65.29 Occlusion and stenosis of unspecified carotid artery; J44.9 Chronic obstructive pulmonary disease, unspecified; I70.209 Unspecified atherosclerosis of native arteries of extremities, unspecified extremity; M79.606 Pain in leg, unspecified; E78.1 Pure hyperglyceridemia; Z87.01 Personal history of pneumonia (recurrent); Z90.49 Acquired absence of other specified parts of digestive tract; Z83.3 Family history of diabetes mellitus; Z82.49 Family history of ischemic heart disease and other diseases of the circulatory system; Z87.891 Personal history of nicotine dependence; Z79.899 Other long term (current) drug therapy; Z85.828 Personal history of other malignant neoplasm of skin; Z68.21 Body mass index [BMI] 21.0-21.9, adult